=== PATIENT | male | born 1940 | race American Indian/Alaskan Native ===

== ENCOUNTER 2016-07-30 00:11 | Emergency (ER) | payer MEDICARE, MEDICAID ==
[2016-07-30] MEDS ORDERED: Morphine 2 MG/ML Syringe IVPUSH ONE (00:18)
[2016-07-30] MEDS ORDERED: Aspirin 81 MG Tab.Chew PO ONE (00:18)
[2016-07-30] MEDS ORDERED: Furosemide 40 MG/4 ML VIAL IVPUSH ONE (00:24)
[2016-07-30 00:44] LABS: CHLORIDE,CL 90 mmol/L (101-111); SODIUM,NA 135 mmol/L (135-145)
[2016-07-30] MEDS ORDERED: Albuterol 0.083% 2.5 MG/3 ML Neb Soln NEB ONE (00:49)
--- NOTE | 2016-07-30 00:54 | EDM.PDOC ---
ED HISTORY OF PRESENT ILLNESS - General Chief Complaint: Chest Pain Stated Complaint: IN BY AMBULANCE Time Seen by Provider: 07/30/16 00:15 Source of Information: Reports: Patient History Limitations: Reports: No limitations - History of Present Illness INITIAL COMMENTS - FREE TEXT/NARRATIVE: ED via [facility] with complaint of chest pain, initially reported started yesterday, llater reported this leighton, difficulty breathing. EMS gave 3 nitro enroute. BP after 3rd dropped to 86 /systolic. Pain unchanged. Patient recent discharge from [facility] with pneumonia and AICD replacement. - Related Data Allergies/ADRs: Allergies Allergy/AdvReac Type Severity Reaction Status Date / Time ibuprofen Allergy Rash Verified 07/21/16 13:34 naproxen Allergy Nausea Verified 07/21/16 13:34 tramadol Allergy Rash Verified 07/21/16 13:34 Home Meds: Home Meds Carvedilol 3.125 tab PO BIDMEALS 09/10/14 [History] Isosorbide Mononitrate [Isosorbide Mononitrate ER] 30 mg PO DAILY 02/06/15 [ History] Lisinopril 2.5 mg PO DAILY 02/06/15 [History] Fenofibrate Nanocrystallized [Fenofibrate] 48 mg PO DAILY 08/09/15 [History] Budesonide [Pulmicort] 0.5 mg NEB BIDRT 12/15/15 [History] Nitroglycerin [Nitrostat] 0.4 mg SL ASDIRECTED PRN 12/15/15 [History] Apixaban [Eliquis] 5 mg PO BID 01/16/16 [History] Digoxin 250 mcg PO DAILY 01/16/16 [History] Ipratropium/Albuterol Sulfate [Iprat-Albut 0.5-3(2.5) mg/3 ml] 1 vial INH QID [History] sitaGLIPtin Phosphate [Januvia] 50 mg PO DAILY 01/16/16 [History] Simvastatin 40 mg PO BEDTIME 01/17/16 [History] Bumetanide 1 mg PO BID 04/08/16 [History] Docusate Sodium [Colace] 100 mg PO DAILY PRN 05/14/16 [History] oxyCODONE HCl [Oxycodone HCl] 10 mg PO BID 05/23/16 [History] Insulin Detemir [Levemir] 48 units SQ BID 07/21/16 [History] Past Medical History HEENT History: Reports: Cataract, Impaired vision Other HEENT History: wears glasses Cardiovascular History: Reports: Angina, Arrhythmia, CAD, Cardiomyopathy, High cholesterol, Hypertension, NE, Pacemaker, SOB on exertion Other Cardiovascular History: ACUTE CORONARY SYNDROME; SICK SINUS SYNDROME Respiratory History: Reports: Bronchitis, recurrent, COPD, PE, Pneumonia, recurrent, SOB Other Respiratory History: CHRONIC RESPIRATORY FAILURE Gastrointestinal History: Reports: Chronic diarrhea, GERD Genitourinary History: Reports: Acute renal failure, BPH, Other (see below) Other Genitourinary History: NOCTURIA Musculoskeletal History: Reports: Back pain, chronic, Osteoarthritis, RA, Other (see below) Other Musculoskeletal History: left hip pain, not cleared for surgery due to bad heart; DJD OF HIP; DDD LUMBROSACRAL; CHRONIC SHOULDER PAIN Neurological History: Reports: Other (see below) Other Neuro History: INSOMNIA Psychiatric History: Reports: None Endocrine/Metabolic History: Reports: Diabetes, type II, Obesity/BMI 30+ Other Endocrine/Metabolic History: diabetes, unsure what type Hematologic History: Reports: None Immunologic History: Reports: None Oncologic (Cancer) History: Reports: None Dermatologic History: Reports: None - Infectious Disease History Infectious Disease History: Reports: None - Past Surgical History Head Surgeries/Procedures: Reports: None HEENT Surgical History: Reports: None Cardiovascular Surgical History: Reports: AICD, Carotid endarterectomy, Coronary artery bypass, Coronary artery stent, Pacer Social & Family History - Family History Family Medical History: Noncontributory - Tobacco Use Smoking Status *Q: Former Smoker Years of Tobacco use: 57 Packs/Tins Daily: 2 Used Tobacco, but Quit: Yes Month Tobacco Last Used: May Second Hand Smoke Exposure: Yes - Caffeine Use Caffeine Use: Reports: Soda Other Caffeine Use: drinks one diet pepsi a day - Alcohol Use Days Per Week of Alcohol Use: 0 - Recreational Drug Use Recreational Drug Use: No - Living Situation & Occupation Living situation: Reports: , with family Occupation: retired ED ROS GENERAL - Review of Systems Review Of Systems: See Below Constitutional: Reports: malaise. Denies: fever, chills, decreased appetite HEENT: Reports: No symptoms Respiratory: Reports: Shortness of Breath, Cough Cardiovascular: Reports: Chest pain GI/Abdominal: Reports: No symptoms Musculoskeletal: Reports: no symptoms Skin: Reports: wound Neurological: Reports: No Symptoms ED EXAM, GENERAL - Physical Exam Exam: See Below Exam Limited By: No limitations General Appearance: alert, no apparent distress, anxious, mild distress Ears: normal external exam Nose: normal inspection Throat/Mouth: Normal inspection Head: atraumatic, normocephalic Neck: normal inspection, full range of motion Respiratory/Chest: decreased breath sounds, rales (leftmid to base) Cardiovascular: regular rate, rhythm (paced). No: no edema (1-2+) GI/Abdominal: normal bowel sounds Back Exam: normal inspection Neurological: alert, oriented, normal cognition Psychiatric: depressed mood Skin Exam: Warm, Dry, Intact, Ecchymosis (upper arm, left uppr anterior cj at AICD site, mild swelling around incision), Wound/incision (AICD surgical incision) Course - Vital Signs Last Recorded V/S: Last Vital Signs Temp 96.4 F 07/30/16 00:13 Pulse 73 07/30/16 00:59 Resp 18 07/30/16 00:59 BP 104/43 L 07/30/16 00:59 Pulse Ox 100 07/30/16 00:59 - Orders/Labs/Meds Orders: Active Orders 24 hr Category Date Time Status EKG 12 Lead [EKG Documentation Completion] [RC] URGENT Care 07/30/16 00:16 Active RT Aerosol Therapy [RC] ASDIRECTED Care 07/30/16 00:50 Active CXR [Chest 1V Frontal] [CR] Urgent Exams 07/30/16 00:01 Taken CULTURE BLOOD [BC] Stat Lab 07/30/16 01:20 Results CULTURE BLOOD [BC] Stat Lab 07/30/16 01:25 Received Blood Culture x2 Reflex Set [OM.PC] Stat Oth 07/30/16 00:55 Ordered Labs: Laboratory Tests 07/30/16 07/30/16 07/30/16 Range/Units 00:16 00:16 00:16 WBC 19.8 H (5.0-10.0) 10^3/uL RBC 4.13 L (4.6-6.2) 10^6/uL Hgb 10.5 L (14.0-18.0) g/dL Hct 33.4 L (40.0-54.0) % MCV 80.9 (80-100) fL MCH 25.4 L (27.0-34.0) pg MCHC 31.4 L (33.0-35.0) g/dL Plt Count 230 (150-450) 10^3/uL Lymph % (Auto) 10.8 L (20.5-50.1) % Miner % (Auto) 11.2 H (2-8) % Eos % (Auto) 0.3 L (1.0-3.0) % Add Manual Diff Yes Neutrophils % (Manual) 77 % Band Neutrophils % 3 % Lymphocytes % (Manual) 14 % Monocytes % (Manual) 6 % PT (9.0-12.0) SEC INR (0.9-1.2) Sodium 135 (135-145) mmol/L Potassium 3.9 (3.6-5.0) mmol/L Chloride 90 L (101-111) mmol/L Carbon Dioxide 40.0 H (21.0-31.0) mmol/L Anion Gap 8.9 BUN 29 H (7-18) mg/dL Creatinine 0.9 (0.6-1.3) mg/dL Est Cr Clr Drug Dosing 78.91 mL/min Estimated GFR (MDRD) > 60 BUN/Creatinine Ratio 32.22 Glucose 95 (74-105) mg/dL Lactic Acid (0.5-2.2) mmol/L Calcium 7.7 L (8.4-10.2) mg/dl Magnesium 2.4 (1.8-2.5) mg/dL Total Bilirubin 0.5 (0.2-1.0) mg/dL AST 17 (10-42) IU/L ALT 12 (10-60) IU/L Alkaline Phosphatase 48 (42-121) IU/L CK-MB (CK-2) 2.40 (0.4-4.7) ng/mL Troponin I 0.11 H* (0.00-0.02) ng/ml B-Natriuretic Peptide 282 H (0-100) pg/ml Total Protein 5.8 L (6.7-8.2) g/dl Albumin 3.0 L (3.2-5.5) g/dl Globulin 2.8 Albumin/Globulin Ratio 1.07 Amylase 27 L (28-100) U/L Lipase 17 L (22-51) U/L Digoxin (0-2.5) ng/ml 03/16/17 03/16/17 03/16/17 Range/Units 00:16 00:16 01:25 WBC (5.0-10.0) 10^3/uL RBC (4.6-6.2) 10^6/uL Hgb (14.0-18.0) g/dL Hct (40.0-54.0) % MCV (80-100) fL MCH (27.0-34.0) pg MCHC (33.0-35.0) g/dL Plt Count (150-450) 10^3/uL Lymph % (Auto) (20.5-50.1) % Miner % (Auto) (2-8) % Eos % (Auto) (1.0-3.0) % Add Manual Diff Neutrophils % (Manual) % Band Neutrophils % % Lymphocytes % (Manual) % Monocytes % (Manual) % PT 10.6 (9.0-12.0) SEC INR 1.1 (0.9-1.2) Sodium (135-145) mmol/L Potassium (3.6-5.0) mmol/L Chloride (101-111) mmol/L Carbon Dioxide (21.0-31.0) mmol/L Anion Gap BUN (7-18) mg/dL Creatinine (0.6-1.3) mg/dL Est Cr Clr Drug Dosing mL/min Estimated GFR (MDRD) BUN/Creatinine Ratio Glucose (74-105) mg/dL Lactic Acid 1.3 (0.5-2.2) mmol/L Calcium (8.4-10.2) mg/dl Magnesium (1.8-2.5) mg/dL Total Bilirubin (0.2-1.0) mg/dL AST (10-42) IU/L ALT (10-60) IU/L Alkaline Phosphatase (42-121) IU/L CK-MB (CK-2) (0.4-4.7) ng/mL Troponin I (0.00-0.02) ng/ml B-Natriuretic Peptide (0-100) pg/ml Total Protein (6.7-8.2) g/dl Albumin (3.2-5.5) g/dl Globulin Albumin/Globulin Ratio Amylase (28-100) U/L Lipase (22-51) U/L Digoxin 1.2 (0-2.5) ng/ml Meds: Medications Discontinued Medications Generic Name Dose Route Start Last Admin Trade Name Devan PRN Reason Stop Dose Admin Albuterol 2.5 mg 07/30/16 00:49 07/30/16 00:55 Proventil Neb Soln NEB 07/30/16 00:50 2.5 mg ONETIME ONE Administration Aspirin 324 mg 07/30/16 00:18 07/30/16 00:22 Aspirin PO 07/30/16 00:19 Not Given ONETIME ONE Furosemide 40 mg 07/30/16 00:24 07/30/16 00:37 Lasix IVPUSH 07/30/16 00:25 40 mg NOW ONE Administration Morphine Sulfate 2 mg 07/30/16 00:18 07/30/16 00:24 Morphine IVPUSH 07/30/16 00:19 2 mg ONETIME ONE Administration - Radiology Interpretation Free Text/Narrative:: CXR small bilateral pleural effusion, improved from previous - Re-Assessments/Exams Free Text/Narrative Re-Assessment/Exam: 07/30/16 01:35 Elevated troponin, chest pain, recent AICD placed, elevated WBC. Dr Elaine accepting of patient in transfer for further eval and management. Neb treatment lasix and Morphine given, patient resting, no further complaint of pain, breathing improved Vitals stable. Dressing changed AICD. Incision intact, no foul drainage. Moist bood, does not appear active bleeding Dr Elaine accepting of patient. Tx via [facility] to [facility], further eval chest pain, elevated WBC and troponin Departure - Departure Time of Disposition: 01:40 Disposition: DC/Tfer to Acute Hospital 02 Reason for Transfer *Q: Other Condition: fair Clinical Impression: COLD, Chronic obstructive lung disease, CHF, Congestive heart failure Chest pain Qualifiers: Chest pain type: chest pain due to myocardial ischemia Ischemic chest pain type : unspecified angina pectoris type Qualified Code(s): I20.9 - Angina pectoris, unspecified Elevated WBC count Qualifiers: Leukocytosis type: unspecified Qualified Code(s): D72.829 - Elevated white blood cell count, unspecified Forms: ED Department Discharge - My Orders Last 24 Hours: My Active Orders 07/30/16 00:01 CXR [Chest 1V Frontal] [CR] Urgent 07/30/16 00:16 EKG 12 Lead [EKG Documentation Completion] [RC] URGENT 07/30/16 00:50 RT Aerosol Therapy [RC] ASDIRECTED 07/30/16 00:55 Blood Culture x2 Reflex Set [OM.PC] Stat 07/30/16 01:20 CULTURE BLOOD [BC] Stat 07/30/16 01:25 CULTURE BLOOD [BC] Stat - Assessment/Plan Last 24 Hours: My Active Orders 07/30/16 00:01 CXR [Chest 1V Frontal] [CR] Urgent 07/30/16 00:16 EKG 12 Lead [EKG Documentation Completion] [RC] URGENT 07/30/16 00:50 RT Aerosol Therapy [RC] ASDIRECTED 07/30/16 00:55 Blood Culture x2 Reflex Set [OM.PC] Stat 07/30/16 01:20 CULTURE BLOOD [BC] Stat 07/30/16 01:25 CULTURE BLOOD [BC] Stat
[2016-07-30 00:59] VITALS: BP 104/43
--- NOTE | 2016-07-30 20:34 | EKG ---
07/30/2016 - [facility] - TIME OF EK hours. EKG shows a paced rhythm at 75 beats per minute. [facility] /[id number]
== END 2016-07-30 01:42 ==
LOC: DL.ED 00:11
DX: I20.9 Angina pectoris, unspecified (principal); I11.0 Hypertensive heart disease with heart failure; I50.9 Heart failure, unspecified; D72.829 Elevated white blood cell count, unspecified; J44.9 Chronic obstructive pulmonary disease, unspecified; E78.00 Pure hypercholesterolemia, unspecified; I25.2 Old myocardial infarction; K21.9 Gastro-esophageal reflux disease without esophagitis; M19.90 Unspecified osteoarthritis, unspecified site; M06.9 Rheumatoid arthritis, unspecified; E11.9 Type 2 diabetes mellitus without complications; E66.9 Obesity, unspecified; I25.810 Atherosclerosis of coronary artery bypass graft(s) without angina pectoris; Z87.01 Personal history of pneumonia (recurrent); Z87.891 Personal history of nicotine dependence; Z79.899 Other long term (current) drug therapy; Z88.6 Allergy status to analgesic agent; Z88.5 Allergy status to narcotic agent; Z79.4 Long term (current) use of insulin
CPT/HCPCS: 36415; 71010; 80053; 80162; 82150; 82553; 83605; 83690; 83735; 83880; 84484; 85025; 85610; 87040; 93005; 93010; 96374; 96375; 99285; J1940; J2270; J7620

== ENCOUNTER 2016-09-02 18:16 | Emergency (ER) | payer MEDICARE, MEDICAID ==
--- NOTE | 2016-09-02 18:29 | EDM.PDOC ---
<Carlos Harding - Last Filed: 09/02/16 19:06> ED HISTORY OF PRESENT ILLNESS - General Chief Complaint: Respiratory Problem Stated Complaint: AMB Time Seen by Provider: 09/02/16 18:25 - Related Data Allergies/ADRs: Allergies Allergy/AdvReac Type Severity Reaction Status Date / Time ibuprofen Allergy Rash Verified 09/02/16 18:03 naproxen Allergy Nausea Verified 09/02/16 18:03 tramadol Allergy Rash Verified 09/02/16 18:03 Home Meds: Home Meds Carvedilol 3.125 tab PO BIDMEALS 09/10/14 [History] Isosorbide Mononitrate [Isosorbide Mononitrate ER] 30 mg PO DAILY 02/06/15 [ History] Lisinopril 2.5 mg PO DAILY 02/06/15 [History] Fenofibrate Nanocrystallized [Fenofibrate] 48 mg PO DAILY 08/09/15 [History] Budesonide [Pulmicort] 0.5 mg NEB BIDRT 12/15/15 [History] Nitroglycerin [Nitrostat] 0.4 mg SL ASDIRECTED PRN 12/15/15 [History] Apixaban [Eliquis] 5 mg PO BID 01/16/16 [History] Digoxin 250 mcg PO DAILY 01/16/16 [History] Ipratropium/Albuterol Sulfate [Iprat-Albut 0.5-3(2.5) mg/3 ml] 1 vial INH QID [History] sitaGLIPtin Phosphate [Januvia] 50 mg PO DAILY 01/16/16 [History] Simvastatin 40 mg PO BEDTIME 01/17/16 [History] Bumetanide 1 mg PO BID 04/08/16 [History] Docusate Sodium [Colace] 100 mg PO DAILY PRN 05/14/16 [History] oxyCODONE HCl [Oxycodone HCl] 10 mg PO BID 05/23/16 [History] Insulin Detemir [Levemir] 48 units SQ BID 07/21/16 [History] ED ROS GENERAL - Review of Systems Review Of Systems: See Below ED EXAM, GENERAL - Physical Exam Exam: See Below Course - Vital Signs Last Recorded V/S: Last Vital Signs Temp 98.6 F 09/02/16 18:56 Pulse 100 09/02/16 18:56 Resp 18 04/19/17 18:56 BP 107/43 L 09/02/16 18:56 Pulse Ox 99 09/02/16 18:56 - Orders/Labs/Meds Orders: Active Orders 24 hr Category Date Time Status EKG Documentation Completion [RC] URGENT Care 09/02/16 18:16 Active CBC WITH AUTO DIFF [HEME] Urgent Lab 09/02/16 18:30 Results CULTURE BLOOD [BC] Stat Lab 09/02/16 18:30 Received CULTURE BLOOD [BC] Stat Lab 09/02/16 18:35 Received DIGOXIN [CHEM] Stat Lab 09/02/16 18:30 Received DRUG SCREEN URINE BIORAD [URCHEM] Stat Lab 09/02/16 18:18 Uncollected MANUAL DIFFERENTIAL QA/NC [HEME] Urgent Lab 09/02/16 18:30 Results UA W/MICROSCOPIC [URIN] Stat Lab 09/02/16 18:18 Uncollected Piperacillin/Tazobactam [Zosyn] 3.375 gm Med 09/02/16 19:07 Active Sodium Chloride 0.9% [Normal Saline] 100 ml IV ONETIME Sodium Chloride 0.9% [Normal Saline] 1,000 ml Med 09/02/16 18:35 Active IV .BOLUS Vancomycin [Vancocin] 1 gm Med 09/02/16 19:07 Active Sodium Chloride 0.9% [Normal Saline] 250 ml IV ONETIME Blood Culture x2 Reflex Set [OM.PC] Stat Oth 09/02/16 18:17 Ordered Medication Orders Sodium Chloride (Normal Saline) 1,000 mls @ 999 mls/hr IV .BOLUS ONE Stop: 09/02/16 19:35 Last Admin: 09/02/16 18:51 Dose: 999 mls/hr Piperacillin Sod/Tazobactam (Sod 3.375 gm/ Sodium Chloride) 100 mls @ 200 mls/ hr IV ONETIME ONE Stop: 09/02/16 19:36 Last Admin: 09/02/16 19:14 Dose: 200 mls/hr Vancomycin HCl 1 gm/ Sodium (Chloride) 250 mls @ 167 mls/hr IV ONETIME ONE Stop: 09/02/16 20:36 Last Admin: 09/02/16 19:12 Dose: 167 mls/hr Labs: Laboratory Tests 09/02/16 09/02/16 09/02/16 Range/Units 18:30 18:30 18:30 WBC 30.5 H* (5.0-10.0) 10^3/uL RBC 4.56 L (4.6-6.2) 10^6/uL Hgb 11.5 L (14.0-18.0) g/dL Hct 37.2 L (40.0-54.0) % MCV 81.6 (80-100) fL MCH 25.2 L (27.0-34.0) pg MCHC 30.9 L (33.0-35.0) g/dL Plt Count 211 (150-450) 10^3/uL Add Manual Diff Yes PT 10.7 (9.0-12.0) SEC INR 1.1 (0.9-1.2) D-Dimer, Quantitative (0-400) ng/mL Sodium 135 (135-145) mmol/L Potassium 3.4 L (3.6-5.0) mmol/L Chloride 93 L (101-111) mmol/L Carbon Dioxide 31.0 (21.0-31.0) mmol/L Anion Gap 14.4 BUN 23 H (7-18) mg/dL Creatinine 1.4 H (0.6-1.3) mg/dL Est Cr Clr Drug Dosing TNP Estimated GFR (MDRD) 49 BUN/Creatinine Ratio 16.42 Glucose 135 H (74-105) mg/dL Lactic Acid (0.5-2.2) mmol/L Calcium 8.8 (8.4-10.2) mg/dl Total Bilirubin 0.5 (0.2-1.0) mg/dL AST 24 (10-42) IU/L ALT 12 (10-60) IU/L Alkaline Phosphatase 63 (42-121) IU/L Troponin I 0.10 H* (0.00-0.02) ng/ml B-Natriuretic Peptide (0-100) pg/ml Total Protein 7.1 (6.7-8.2) g/dl Albumin 3.7 (3.2-5.5) g/dl Globulin 3.4 Albumin/Globulin Ratio 1.09 Ethyl Alcohol < 5 mg/dL 09/02/16 09/02/16 09/02/16 Range/Units 18:30 18:30 18:35 WBC (5.0-10.0) 10^3/uL RBC (4.6-6.2) 10^6/uL Hgb (14.0-18.0) g/dL Hct (40.0-54.0) % MCV (80-100) fL MCH (27.0-34.0) pg MCHC (33.0-35.0) g/dL Plt Count (150-450) 10^3/uL Add Manual Diff PT (9.0-12.0) SEC INR (0.9-1.2) D-Dimer, Quantitative 1040 H (0-400) ng/mL Sodium (135-145) mmol/L Potassium (3.6-5.0) mmol/L Chloride (101-111) mmol/L Carbon Dioxide (21.0-31.0) mmol/L Anion Gap BUN (7-18) mg/dL Creatinine (0.6-1.3) mg/dL Est Cr Clr Drug Dosing Estimated GFR (MDRD) BUN/Creatinine Ratio Glucose (74-105) mg/dL Lactic Acid 3.2 H (0.5-2.2) mmol/L Calcium (8.4-10.2) mg/dl Total Bilirubin (0.2-1.0) mg/dL AST (10-42) IU/L ALT (10-60) IU/L Alkaline Phosphatase (42-121) IU/L Troponin I (0.00-0.02) ng/ml B-Natriuretic Peptide 597 H (0-100) pg/ml Total Protein (6.7-8.2) g/dl Albumin (3.2-5.5) g/dl Globulin Albumin/Globulin Ratio Ethyl Alcohol mg/dL Meds: Medications Generic Name Dose Route Start Last Admin Trade Name Freq PRN Reason Stop Dose Admin Sodium Chloride 1,000 mls @ 999 mls/hr 09/02/16 18:35 09/02/16 18:51 Normal Saline IV 09/02/16 19:35 999 mls/hr .BOLUS ONE Administration Piperacillin Sod/Tazobactam 100 mls @ 200 mls/hr 09/02/16 19:07 09/02/16 19: 14 Sod 3.375 gm/ Sodium Chloride IV 09/02/16 19:36 200 mls/hr ONETIME ONE Administration Vancomycin HCl 1 gm/ Sodium 250 mls @ 167 mls/hr 09/02/16 19:07 09/02/16 19: 12 Chloride IV 09/02/16 20:36 167 mls/hr ONETIME ONE Administration Discontinued Medications Generic Name Dose Route Start Last Admin Trade Name Devan PRN Reason Stop Dose Admin Acetaminophen 650 mg 09/02/16 19:01 09/02/16 19:05 Tylenol PO 09/02/16 19:02 650 mg NOW ONE Administration - Re-Assessments/Exams Free Text/Narrative Re-Assessment/Exam: 09/02/16 19:06 results discussed with Pt. case discussed with Dr Elaine who kindly accepted Pt. Departure - Departure Time of Disposition: 19:08 Disposition: DC/Tfer to [facility] 02 Preliminary Cause of *Q: Other_Special Instruction Condition: fair Clinical Impression: Sepsis associated hypotension Forms: Interfacility Transfer EMTALA - My Orders Last 24 Hours: My Active Orders 09/02/16 18:30 DIGOXIN [CHEM] Stat - Assessment/Plan Last 24 Hours: My Active Orders 09/02/16 18:30 DIGOXIN [CHEM] Stat <Shabnam Gonzalez - Last Filed: 09/02/16 19:23> ED HISTORY OF PRESENT ILLNESS - General Source of Information: Reports: Patient History Limitations: Reports: No limitations - History of Present Illness INITIAL COMMENTS - FREE TEXT/NARRATIVE: Bartolome Virgen is a 76 year old male with a history of diabetes type 2, hypertension, CHF, atrial fibrillation, COPD, s/p recent battery change in his AICD ([employer] single chamber pacemaker from 07/2009) presenting to the ED with a 2 day history of increasing pain over the pacemaker site, shortness of breath , malaise, and nausea with vomiting. He lives at home with his daughter who helps care for him. She was concerned about his health and called the ambulance. He is oxygen dependent at home normally using 2 liters. He has a history of neuropathy which has gotten worse in the last two days to the point he needs help to stand due to bilateral heel pain. He feels pain over the pacemaker site. He was recently seen in the hospital due to an infection at the insertion site and he remains on PO antibiotics. He is feeling short of breath. He is eating and drinking water but has vomited twice today and twice yesterday. He denies the use of drugs or alcohol. He is generally feeling full body pain that is worsening. Past Medical History HEENT History: Reports: Cataract, Impaired vision Other HEENT History: wears glasses Cardiovascular History: Reports: Angina, Arrhythmia, CAD, Cardiomyopathy, High cholesterol, Hypertension, [place], Pacemaker, SOB on exertion Other Cardiovascular History: ACUTE CORONARY SYNDROME; SICK SINUS SYNDROME Respiratory History: Reports: Bronchitis, recurrent, COPD, PE, Pneumonia, recurrent, SOB Other Respiratory History: CHRONIC RESPIRATORY FAILURE Gastrointestinal History: Reports: Chronic diarrhea, GERD Genitourinary History: Reports: Acute renal failure, BPH, Other (see below) Other Genitourinary History: NOCTURIA Musculoskeletal History: Reports: Back pain, chronic, Osteoarthritis, RA, Other (see below) Other Musculoskeletal History: left hip pain, not cleared for surgery due to bad heart; DJD OF HIP; DDD LUMBROSACRAL; CHRONIC SHOULDER PAIN Neurological History: Reports: Other (see below) Other Neuro History: INSOMNIA Psychiatric History: Reports: None Endocrine/Metabolic History: Reports: Diabetes, type II, Obesity/BMI 30+ Other Endocrine/Metabolic History: diabetes, unsure what type Hematologic History: Reports: None Immunologic History: Reports: None Oncologic (Cancer) History: Reports: None Dermatologic History: Reports: None - Infectious Disease History Infectious Disease History: Reports: None - Past Surgical History Head Surgeries/Procedures: Reports: None HEENT Surgical History: Reports: None Cardiovascular Surgical History: Reports: AICD, Carotid endarterectomy, Coronary artery bypass, Coronary artery stent, Pacer Social & Family History - Family History Family Medical History: Noncontributory - Tobacco Use Smoking Status *Q: Former Smoker Years of Tobacco use: 57 Packs/Tins Daily: 2 Used Tobacco, but Quit: Yes Month Tobacco Last Used: May Second Hand Smoke Exposure: Yes - Caffeine Use Caffeine Use: Reports: Soda Other Caffeine Use: drinks one diet pepsi a day - Alcohol Use Days Per Week of Alcohol Use: 0 - Recreational Drug Use Recreational Drug Use: No - Living Situation & Occupation Living situation: Reports: , with family Occupation: retired ED ROS GENERAL - Review of Systems Constitutional: Reports: chills, malaise, weakness, fatigue. Denies: fever HEENT: Reports: Other (blurry vision) Respiratory: Reports: Shortness of Breath, Pleuritic Chest Pain. Denies: Wheezing, Cough, Sputum Cardiovascular: Reports: Chest pain (over pacemaker site), Dyspnea on exertion. Denies: Edema Endocrine: Reports: fatigue GI/Abdominal: Reports: Abdominal pain, Nausea, Vomiting. Denies: Diarrhea : Reports: no symptoms Musculoskeletal: Reports: other (diffuse pain throughout his body) Skin: Reports: other (abrasions on the bilateral heels; older appearing scabs over the legs) Neurological: Reports: Dizziness, Headache (diffuse), Numbness (bilateral foot numbness and tingling with pain). Denies: Confusion ED EXAM, GENERAL - Physical Exam Exam: See Below Exam Limited By: No limitations General Appearance: alert, mild distress (due to pain) Eye Exam: bilateral eye: PERRL Ears: normal canal, hearing grossly normal Nose: normal inspection, normal mucosa Throat/Mouth: Normal inspection, Normal lips, Normal oropharynx, No airway compromise Head: atraumatic, normocephalic Neck: normal inspection, supple, non-tender Respiratory/Chest: no respiratory distress, crackles, rales (right lung base) Cardiovascular: tachycardia, other (pacemaker site with induration; mild erythema and warmth; crusting and escar over the lateral wound edge) GI/Abdominal: normal bowel sounds, soft, non tender, no distention Extremities: other (abrasions to the bilateral heels; old scabs on the legs bilaterally) Neurological: alert Skin Exam: Warm, Dry Course - Orders/Labs/Meds Labs: Laboratory Tests 09/02/16 09/02/16 09/02/16 Range/Units 18:30 18:30 18:30 WBC 30.5 H* (5.0-10.0) 10^3/uL RBC 4.56 L (4.6-6.2) 10^6/uL Hgb 11.5 L (14.0-18.0) g/dL Hct 37.2 L (40.0-54.0) % MCV 81.6 (80-100) fL MCH 25.2 L (27.0-34.0) pg MCHC 30.9 L (33.0-35.0) g/dL Plt Count 211 (150-450) 10^3/uL Add Manual Diff Yes PT 10.7 (9.0-12.0) SEC INR 1.1 (0.9-1.2) D-Dimer, Quantitative (0-400) ng/mL Sodium 135 (135-145) mmol/L Potassium 3.4 L (3.6-5.0) mmol/L Chloride 93 L (101-111) mmol/L Carbon Dioxide 31.0 (21.0-31.0) mmol/L Anion Gap 14.4 BUN 23 H (7-18) mg/dL Creatinine 1.4 H (0.6-1.3) mg/dL Est Cr Clr Drug Dosing TNP Estimated GFR (MDRD) 49 BUN/Creatinine Ratio 16.42 Glucose 135 H (74-105) mg/dL Lactic Acid (0.5-2.2) mmol/L Calcium 8.8 (8.4-10.2) mg/dl Total Bilirubin 0.5 (0.2-1.0) mg/dL AST 24 (10-42) IU/L ALT 12 (10-60) IU/L Alkaline Phosphatase 63 (42-121) IU/L Troponin I 0.10 H* (0.00-0.02) ng/ml B-Natriuretic Peptide (0-100) pg/ml Total Protein 7.1 (6.7-8.2) g/dl Albumin 3.7 (3.2-5.5) g/dl Globulin 3.4 Albumin/Globulin Ratio 1.09 Ethyl Alcohol < 5 mg/dL 09/02/16 09/02/16 09/02/16 Range/Units 18:30 18:30 18:35 WBC (5.0-10.0) 10^3/uL RBC (4.6-6.2) 10^6/uL Hgb (14.0-18.0) g/dL Hct (40.0-54.0) % MCV (80-100) fL MCH (27.0-34.0) pg MCHC (33.0-35.0) g/dL Plt Count (150-450) 10^3/uL Add Manual Diff PT (9.0-12.0) SEC INR (0.9-1.2) D-Dimer, Quantitative 1040 H (0-400) ng/mL Sodium (135-145) mmol/L Potassium (3.6-5.0) mmol/L Chloride (101-111) mmol/L Carbon Dioxide (21.0-31.0) mmol/L Anion Gap BUN (7-18) mg/dL Creatinine (0.6-1.3) mg/dL Est Cr Clr Drug Dosing Estimated GFR (MDRD) BUN/Creatinine Ratio Glucose (74-105) mg/dL Lactic Acid 3.2 H (0.5-2.2) mmol/L Calcium (8.4-10.2) mg/dl Total Bilirubin (0.2-1.0) mg/dL AST (10-42) IU/L ALT (10-60) IU/L Alkaline Phosphatase (42-121) IU/L Troponin I (0.00-0.02) ng/ml B-Natriuretic Peptide 597 H (0-100) pg/ml Total Protein (6.7-8.2) g/dl Albumin (3.2-5.5) g/dl Globulin Albumin/Globulin Ratio Ethyl Alcohol mg/dL Meds: Medications Generic Name Dose Route Start Last Admin Trade Name Freq PRN Reason Stop Dose Admin Sodium Chloride 1,000 mls @ 999 mls/hr 09/02/16 18:35 09/02/16 18:51 Normal Saline IV 09/02/16 19:35 999 mls/hr .BOLUS ONE Administration Piperacillin Sod/Tazobactam 100 mls @ 200 mls/hr 09/02/16 19:07 09/02/16 19: 14 Sod 3.375 gm/ Sodium Chloride IV 09/02/16 19:36 200 mls/hr ONETIME ONE Administration Vancomycin HCl 1 gm/ Sodium 250 mls @ 167 mls/hr 09/02/16 19:07 09/02/16 19: 12 Chloride IV 09/02/16 20:36 167 mls/hr ONETIME ONE Administration Discontinued Medications Generic Name Dose Route Start Last Admin Trade Name Freq PRN Reason Stop Dose Admin Acetaminophen 650 mg 09/02/16 19:01 09/02/16 19:05 Tylenol PO 09/02/16 19:02 650 mg NOW ONE Administration - My Orders Last 24 Hours: My Active Orders 09/02/16 18:30 DIGOXIN [CHEM] Stat - Assessment/Plan Last 24 Hours: My Active Orders 09/02/16 18:30 DIGOXIN [CHEM] Stat
[2016-09-02] MEDS ORDERED: Sodium Chloride 0.9% 1,000 ML IV ONE (18:35)
[2016-09-02 18:57] VITALS: BP 107/43
[2016-09-02 19:01] LABS: CHLORIDE,CL 93 mmol/L (101-111); SODIUM,NA 135 mmol/L (135-145)
[2016-09-02] MEDS ORDERED: Acetaminophen 325 MG Tab PO ONE (19:01)
[2016-09-02] MEDS ORDERED: Piperacillin/Tazobactam 3.375 GM in Sodium Chloride 0.9% 100 ML IV ONE (19:07)
--- NOTE | 2016-09-18 07:16 | EKG ---
09/02/2016- [employer]NAB[employer] - EKG, per my reading, shows ventricular paced rhythm at the rate of 103. [facility] /[id number]
== END 2016-09-02 19:40 ==
LOC: DL.ED 18:16
DX: A41.9 Sepsis, unspecified organism (principal); I95.9 Hypotension, unspecified; E78.00 Pure hypercholesterolemia, unspecified; I10 Essential (primary) hypertension; I25.2 Old myocardial infarction; J44.9 Chronic obstructive pulmonary disease, unspecified; I25.810 Atherosclerosis of coronary artery bypass graft(s) without angina pectoris; K21.9 Gastro-esophageal reflux disease without esophagitis; M19.90 Unspecified osteoarthritis, unspecified site; M06.9 Rheumatoid arthritis, unspecified; E11.9 Type 2 diabetes mellitus without complications; E66.9 Obesity, unspecified; Z88.5 Allergy status to narcotic agent; Z88.6 Allergy status to analgesic agent; Z79.899 Other long term (current) drug therapy; Z79.4 Long term (current) use of insulin; Z87.01 Personal history of pneumonia (recurrent); Z87.891 Personal history of nicotine dependence
CPT/HCPCS: 36415; 71010; 80053; 80162; 83605; 83880; 84484; 85025; 85379; 85610; 87040; 93005; 93010; 96365; 96368; 99285; A9270; G0480; J2543; J3370; J7030; J7050; 87077; 87186

== ENCOUNTER 2016-09-16 14:23 | Inpatient (IN) | payer MEDICARE, MEDICAID ==
[2016-09-16] MEDS ORDERED: Bisacodyl 10 MG Supp RECTAL PRN (16:53)
[2016-09-16] MEDS ORDERED: Acetaminophen 325 MG Tab PO PRN (16:53)
[2016-09-16] MEDS ORDERED: Sodium Chloride 0.9% 10 ML Syringe FLUSH PRN (17:01)
[2016-09-16] MEDS ORDERED: Acetaminophen 650 MG Supp RECTAL PRN (17:01)
[2016-09-16] MEDS ORDERED: Morphine PF 150 MG/30 ML PCA Syringe IV SCH (17:15)
[2016-09-16] MEDS: Morphine 10 MG/ML Syringe PRN (17:30)
[2016-09-16] MEDS ORDERED: Morphine 4 MG/ML Syringe SUBCUT STA (17:44)
[2016-09-16] MEDS: LORazepam 2 MG/ML Syringe IVPUSH PRN (18:29)
[2016-09-16] MEDS ORDERED: Albuterol/Ipratropium 3.0-0.5 MG/3 ML Neb Soln NEB PRN (18:39)
[2016-09-16] MEDS ORDERED: Ondansetron 4 MG Tab.DIS PO PRN (20:30)
[2016-09-17] MEDS: LORazepam 2 MG/ML Syringe IVPUSH PRN ×2 (01:32→11:09)
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
[2016-09-17] MEDS: Atropine 1% Ophth Soln 5 ML Bottle SL PRN ×2 (04:31→15:36)
[2016-09-17 07:48] VITALS: BP 154/72
[2016-09-17] MEDS ORDERED: LORazepam 2 MG/ML Syringe IVPUSH PRN (11:19)
[2016-09-17] MEDS ORDERED: Morphine 10 MG/ML Syringe IVPUSH STA (11:21)
[2016-09-17] MEDS: Morphine 10 MG/ML Syringe PRN (12:57)
[2016-09-17] MEDS: Haloperidol Lactate 2 MG/ML Oral Soln 15 ML Bottle PO SCH ×3 (13:56→17:22)
[2016-09-18] MEDS ORDERED: Haloperidol Lactate 2 MG/ML Oral Soln 15 ML Bottle PO PRN
--- NOTE | 2016-09-18 07:16 | PN ---
{[place], DATE: 09/17/2016 SUBJECTIVE: Mr. Virgen was admitted yesterday for end-of-life care. He has end-stage cardiopulmonary disease. He recently had gram-negative sepsis with E. coli. His AICD/pacemaker generator was changed on August 13, resulting in infection which led to the gram-negative bacteremia. The pocket containing the pacemaker has also partially dehisced and the generator is exposed through the skin. He was admitted yesterday for end-of-life care due to social issues at home which were preventing him from receiving adequate care. He was admitted and started on palliative medications including morphine RETORT LOADER, IV Ativan, oral atropine drops , as well as DuoNeb nebulizer treatments. This morning, he had been very restless, was trying to climb out of bed. We increased his lorazepam order to 1 mg every 4 hours. He also developed acute abdominal pain this morning. He was given a 5 mg morphine bolus and we have adjusted his morphine RETORT LOADER. He now will receive 2 mg/hour as his basal dose. His RETORT LOADER dose was increased to 2 mg at an interval of every 15 minutes. We noted that he would start to relax and doze off and he would startle out of bed and start groping for things and calling out. Because of this, we have added Haldol solution 2 mg/mL. We are going to give him a loading dose of 0.5 mg every 2 hours for 3 doses and then we will give him 0.5 mg every 6 hours p.r.n. for agitation. At this time, he is finally resting very comfortably. Review of his clinical data and after speaking to the nurses, it was noted that he has been tachycardic overnight with heart rates to 120. Respiratory rate has been low 20s. If he keeps his oxygen on, saturations were in the mid-to-high 90s up to 100% but when he was agitated, he wanted the oxygen off and sats were down around 76%. Blood pressure is still adequate at 141/82, and he remains afebrile. Examination of his other clinical data shows poor oral intake. Last night, he only ate a few bites of fresh fruit, but nothing else. He ate about 50 % of his breakfast and none of his lunch. Urine output has declined since the time of admission. The biliary drain continues to function. No labs or x-rays have been performed, consistent with his comfort care status. PHYSICAL EXAMINATION: General: Initially he was agitated and thrashing in the bed but could not tell us what he needed or wanted or what the problem was. We gave him a p.r.n. dose of Ativan, we increased his morphine RETORT LOADER, and we added Haldol solution and he is now resting very comfortably. Vital Signs: Blood pressure 154/72, pulse 120 and regular, respiratory rate 20 and unlabored, oxygen saturation was 100% on 2 L, but he will not keep the oxygen on and we have left it off. Temperature is 97.0. HEENT: Showed diminished bilateral breath sounds. Heart: Showed regular rate and rhythm. Abdomen: Soft and benign. Extremities: Showed no edema. His IV is in his right lower extremity as we are unable to obtain any IV access in the upper arms due to his recent prolonged illness and lack of IV access. Neurologic: He is moving extremities but at this time is finally resting comfortably. PLAN: We will continue the present management and we will continue to give him comfort care measures . We will update family members on his current status. Addendum: Mr. Virgen continued to decline over the course of the afternoon. He became increasingly unresponsive. He developed long periods of apnea. Family was kept informed and we explained that his was imminent. Family did start to arrive and spent time with him. Mr. Virgen peacefully with family at his side at 1818 hours. Body was released to [facility]. certificate was completed on by Dr. Hoff. [facility] /[id number] [facility] }
--- NOTE | 2016-10-07 10:21 | DISCH ---
{null, DISCHARGE DIAGNOSES: 1. Cardiopulmonary failure. 2. 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 3. End-stage chronic obstructive pulmonary disease. 4. Recent replacement of AICD/pacemaker generator complicated by post procedure bleeding and dehiscence of the wound. Subsequently developed E. Coli sepsis, generator pocket was felt to the source of the infection. 5. Family and social issues which resulted in admission to the hospital for end-of-life care. 6. The patient on September 17, 2016, at 1818 hours. BRIEF HISTORY OF PRESENT ILLNESS: Mr. Virgen was a 76-year-old gentleman well known to the staff from multiple admissions over the years. He had recently been admitted to [facility] from September 02, 2016, to September 10, 2016, with a complicated course including E. coli sepsis, possible aspiration pneumonia, and hypoxic respiratory failure. He has had an AICD/pacemaker for a number of years. The generator had been recalled and he had missed multiple appointments with his information systems consultant for generator replacement. This was finally performed on August 13, 2016. The placement of generator was complicated by hematoma and significant bleeding. He subsequently developed Escherichia coli bacteremia. It was felt that the infection was actually coming from the generator pocket as there were no other identifiable sources for the bacteremia. During the acute admission, a palliative care consult was requested, and it was decided that Mr. Virgen would return home on hospice. He returned to his home in [place] on September 10. There were multiple social issues regarding his return home including controlled substances that were missing less than one day after they had been delivered to the house by the hospice nurses. Hospice tried to stay with Mr. Virgen, but the social situation continued to deteriorate, and on Wednesday, September 14, 2016, hospice withdrew from his care. We did have a backup plan in place. We contacted [facility], as well as the [facility] and [facility] in [place]. In the event that Mr. Virgen was unable to stay at home, we were prepared to admit him either to [facility] in [place] or to the hospital. [facility] was prepared to admit him on short notice. [facility] did make a report to Adult Protective Services. The licensed social worker for APS went to Mr. Virgen' home on the morning of September 16, 2016, and Mr. Virgen was brought to the hospital for direct admission for end-of-life care. HOSPITAL COURSE: Mr. Virgen was in some respiratory distress when he initially arrived and had significant dyspnea, although no other chest or abdominal pain. The dyspnea was quickly treated with subcutaneous morphine and nebulized morphine, and this was helpful in controlling the acute dyspnea. Following this, we were able to get a morphine DIRECTOR IT started and IV Ativan was ordered for acute anxiety and agitation on a p.r.n. basis. Atropine ophthalmic solution was used for excess oral secretions, and we continued DuoNeb nebulizer treatment as needed for dyspnea.Small doses of haloperidol were later added for acute agitation. Mr. Virgen was comfortable. We did inform his family that he was admitted and settled. He did fairly well overnight, but in the honey blender hours of September 17, 2016, he became somewhat agitated and nursing staff felt he needed to be closer to the nurses station and he was moved to a different room. His level of consciousness continued to decline, and by the afternoon of September 17, 2016, he was essentially unresponsive. He seemed comfortable. He did not exhibit any visible signs of pain. He was not restless or moaning. Respiratory rate was controlled and he did not appear to be having any dyspnea. His condition continued to rapidly decline. I did speak with his daughter informing her that he was now unresponsive and family came to the hospital. Quite a few family members were able to arrive and spend his remaining hours with him. Mr. Virgen on September 17, 2016, at 1818 hours. Family was present by his side at the time of his . At the time of his , he appeared comfortable. Review of his clinical data during the admission showed poor oral intake, which declined over the course of the admission. He remained in a net negative fluid balance. He had a small amount of oral intake initially at the time of admission, and on the morning of his , he did consume part of his breakfast, but after that, he had no oral intake. Vital signs were reviewed. His blood pressure actually remained relatively stable up until time of his . He became increasingly tachycardic, his breathing was controlled on the morphine DIRECTOR IT, and oxygen saturations also remained above 90% on 2 L nasal cannula; in the 70% range off oxygen. He was afebrile throughout the admission. PHYSICAL EXAMINATION: On the day of his , blood pressure was 141/82, pulse 120, respiratory rate in the morning was 20 to 22, but as the day wore on, his respiratory rate slowed down. He was afebrile. He did not appear to be in pain nor did he respond to tactile or verbal stimulation. Chest showed coarse diminished bilateral breath sounds. Heart sounds were muffled. Abdomen was benign. Extremities showed chronic lower extremity edema and venous stasis changes. Neurologically, he was unresponsive. Mr. Virgen on September 17, 2016, at 1818 hours. His body was released to [facility]. certificate was completed on by Dr. Hoff. [facility] /[id number] }
== END 2016-09-17 18:18 | disposition expired | DRG 293 ==
LOC: DL.MS 14:53 → UNDOADMIN 14:53 → DL.MS 16:53
PROVIDERS: ADMIT Internal Medicine; ATTEND Internal Medicine
DX: I11.0 Hypertensive heart disease with heart failure (principal); I50.9 Heart failure, unspecified; Z51.5 Encounter for palliative care; Z95.0 Presence of cardiac pacemaker; E78.5 Hyperlipidemia, unspecified; M54.9 Dorsalgia, unspecified; G89.29 Other chronic pain; J44.9 Chronic obstructive pulmonary disease, unspecified; Z99.81 Dependence on supplemental oxygen; Z95.1 Presence of aortocoronary bypass graft; I25.2 Old myocardial infarction; Z87.891 Personal history of nicotine dependence; Z82.49 Family history of ischemic heart disease and other diseases of the circulatory system
CPT/HCPCS: 94010; 94640; A9270-GY; J2060; J2270; J2274